=== PATIENT | female | born 1940 | race Caucasian/White ===

== ENCOUNTER 2025-10-08 17:24 | Emergency (ER) | payer MEDICARE ==
[2025-10-08 18:12] LABS: BASOPHILS ABSOLUTE AUTO 0.1 x10-3/uL (0.0-0.1); BASOPHILS PERCENT AUTO 0.7 % (0.2-1.5); EOSINOPHILS ABSOLUTE AUTO 0.1 x10-3/uL (0.0-0.8); EOSINOPHILS PERCENT AUTO 1.5 % (0.6-8.1); LYMPHOCYTES ABSOLUTE AUTO 1.6 x10-3/uL (1.0-4.4); LYMPHOCYTES PERCENT AUTO 17.0 % (18.4-52.1); MEAN PLATELET VOLUME 7.4 fL (7.1-12.4); MONOCYTES ABSOLUTE AUTO 1.0 x10-3/uL (0.3-1.0); MONOCYTES PERCENT AUTO 10.3 % (4.4-15.7); NEUTROPHILS ABSOLUTE AUTO 6.7 x10-3/uL (1.5-6.3); NEUTROPHILS PERCENT AUTO 70.5 % (30.8-76.2); PLATELET COUNT,PLT 252 x10(3)uL (151-488); RED BLOOD CELL COUNT 3.69 x10(6)uL (3.60-5.20); RED CELL DISTRIBUTION WIDTH 13.8 % (12.3-16.5); WHITE BLOOD CELL COUNT,WBC 9.4 x10-3/uL (3.0-10.3)
[2025-10-08 18:15] LABS: BLOOD UREA NITROGEN,BUN 36 mg/dL (7-18); CARBON DIOXIDE,CO2 27 mmol/L (21-32); CHLORIDE,CL 101 mmol/L (100-110); CREATININE 1.6 mg/dL (0.55-1.02); EST CRCL DRUG DOSING (CG) 23.63 mL/min; ESTIMATED GFR 31 mL/min (>60); GLUCOSE RANDOM 127 mg/dL (80-116); POTASSIUM,K 3.1 mmol/L (3.5-5.3); SODIUM,NA 138 mmol/L (135-145)
[2025-10-08 18:26] LABS: A/G RATIO 1.0; ALANINE AMINOTRANSFERASE,ALT 15 U/L (12-36); ASPARTATE AMNIOTRANSFERASE,AST 15 IU/L (5-25); BILIRUBIN TOTAL 0.5 mg/dL (0.1-1.3); PROTEIN TOTAL,TP 7.6 g/dL (6.0-8.0)
[2025-10-08 18:42] LABS: APPEARANCE,URINE SLIGHTLY CLOUDY (CLEAR); GLUCOSE,URINE NORMAL (NORMAL); OCCULT BLOOD,URINE NEGATIVE (NEGATIVE)
[2025-10-08 18:55] LABS: SQUAMOUS EPITHELIAL CELLS,UR FEW (NS,R,O)
[2025-10-12 09:36] LABS: ADENOVIRUS 40/41 PCR SEE SEPARATE REPORT; ASTROVIRUS PCR SEE SEPARATE REPORT; CRYPTOSPORIDIUM PCR SEE SEPARATE REPORT; CYCLOSPORA CAYETANENSIS PCR SEE SEPARATE REPORT; E. COLI O157 PCR SEE SEPARATE REPORT; ENTAMOEBA HISTOLYTICA PCR SEE SEPARATE REPORT; ENTEROAGGREGATIVE E. COLI PCR SEE SEPARATE REPORT; ENTEROPATHOGENIC E. COLI PCR SEE SEPARATE REPORT; ENTEROTOXIGENIC E. COLI PCR SEE SEPARATE REPORT; GIARDIA LAMBLIA PCR SEE SEPARATE REPORT; NOROVIRUS GI/GII PCR SEE SEPARATE REPORT; PLESIOMONAS SHIGELLOIDES PCR SEE SEPARATE REPORT; ROTAVIRUS A PCR SEE SEPARATE REPORT; SALMONELLA PCR SEE SEPARATE REPORT; SHIG/ENTEROINVASIVE E COLI PCR SEE SEPARATE REPORT; SHIGA TOXIN-PRODUC E. COLI PCR SEE SEPARATE REPORT; VIBRIO CHOLERAE PCR SEE SEPARATE REPORT; VIBRIO PCR SEE SEPARATE REPORT; YERSINIA ENTEROCOLITICA PCR SEE SEPARATE REPORT
[2025-10-12 09:37] LABS: SAPOVIRUS PCR SEE SEPARATE REPORT
== END 2025-10-08 19:25 | disposition home or self-care (01) ==
LOC: FB.ED 17:24
DX: R19.7 Diarrhea, unspecified (principal); E87.6 Hypokalemia; N39.0 Urinary tract infection, site not specified
CPT/HCPCS: 36415; 80053; 81001; 83690; 85025; 87086; 87088; 87186; 87507; 99284; A9270

== ENCOUNTER 2025-10-14 15:29 | Emergency (ER) | payer MEDICARE ==
[2025-10-14 16:16] LABS: BASOPHILS ABSOLUTE AUTO 0.1 x10-3/uL (0.0-0.1); BASOPHILS PERCENT AUTO 0.8 % (0.2-1.5); EOSINOPHILS ABSOLUTE AUTO 0.1 x10-3/uL (0.0-0.8); EOSINOPHILS PERCENT AUTO 1.5 % (0.6-8.1); LYMPHOCYTES ABSOLUTE AUTO 1.2 x10-3/uL (1.0-4.4); LYMPHOCYTES PERCENT AUTO 15.7 % (18.4-52.1); MEAN PLATELET VOLUME 7.3 fL (7.1-12.4); MONOCYTES ABSOLUTE AUTO 0.7 x10-3/uL (0.3-1.0); MONOCYTES PERCENT AUTO 10.0 % (4.4-15.7); NEUTROPHILS ABSOLUTE AUTO 5.4 x10-3/uL (1.5-6.3); NEUTROPHILS PERCENT AUTO 72.0 % (30.8-76.2); PLATELET COUNT,PLT 255 x10(3)uL (151-488); RED BLOOD CELL COUNT 3.17 x10(6)uL (3.60-5.20); RED CELL DISTRIBUTION WIDTH 13.6 % (12.3-16.5); WHITE BLOOD CELL COUNT,WBC 7.4 x10-3/uL (3.0-10.3)
[2025-10-14 16:25] LABS: ALANINE AMINOTRANSFERASE,ALT 11.0 U/L (12-36); ASPARTATE AMNIOTRANSFERASE,AST 15.0 IU/L (5-25); BILIRUBIN DIRECT 0.12 mg/dL (0.10-0.20); BILIRUBIN TOTAL 0.3 mg/dL (0.1-1.3); PROTEIN TOTAL,TP 6.2 g/dL (6.0-8.0)
[2025-10-14 16:30] LABS: GLUCOSE,URINE NORMAL (NORMAL); OCCULT BLOOD,URINE NEGATIVE (NEGATIVE)
[2025-10-14 16:31] LABS: APPEARANCE,URINE CLEAR (CLEAR)
[2025-10-14] MEDS ORDERED: Sodium Chloride 0.9% 10 ML Syringe FLUSH PRN (18:24)
== END 2025-10-14 21:08 ==
LOC: FB.ED 15:29
DX: N17.9 Acute kidney failure, unspecified (principal); E86.0 Dehydration; A04.72 Enterocolitis due to Clostridium difficile, not specified as recurrent; I10 Essential (primary) hypertension
CPT/HCPCS: 36415; 51798; 80069; 80076; 81003; 83735; 85025; 96360; 96361; 99284-25; 99285